=== PATIENT | male | born 1960 | race Caucasian/White ===

== ENCOUNTER → 2017-06-19 | Outpatient (CLI) | payer OTHER, BC ==
[~2017-06-19] MED LIST: ASCORBIC ACID100 MG PO; FISH OIL 1,0001 EAC7 PO; LEVAQUIN750 MG PO; MULTIVITAMIN1 EAC2 PO; PREDNISONE10 MG PO; RESVERATROL100 MG PO; TYLENOL REGULA325 MG PO; VITAMIN D-32000 UNI2 PO
== END | disposition home or self-care (01) ==
LOC: RES 07:43
DX: Z02.71 Encounter for disability determination (principal)
CPT/HCPCS: 94010; 94760